=== PATIENT | male | born 1950 | race Caucasian/White ===

== ENCOUNTER → 2018-05-25 | Outpatient (CLI) | payer MEDICARE ==
--- NOTE | 2018-05-25 11:43 | MR ---
EXAMINATION TYPE: MR lumbar spine wo con DATE OF EXAM: 05/25/2018 COMPARISON: NONE HISTORY: Radiculopathy, lumbar and spondylosis per order. Pain into right buttocks, sciatic nerve pro blem for 4 months per patient. TECHNIQUE: Multiplanar, multisequence imaging of the lumbar spine is performed without IV contrast. FINDINGS: Sagittal images of the lumbar spine show vertebral body heights and alignment to appear sat isfactory. The intervertebral discs demonstrate multilevel disc desiccation and mild to moderate disc space narrowing. There is mild to moderate anterior spurring near thoracolumbar junction. The conus medullaris is normal in position and signal ending mid L1 level. The bone marrow signal intensity is within normal limits. Axial images at the T12-L1 level shows tiny right paracentral disc protrusion minimally effacing ante rior thecal sac and mild facet degenerative changes bilaterally. Bilateral neural foramina are patent . Axial images at the L1-L2 level show mild/moderate broad disc bulge effacing anterior thecal sac on a xial image 22 with mild facet degenerative changes bilaterally. Bilateral neural foramina are patent. Axial images at L2-L3 level show mild facet degenerative changes bilaterally. There is mild to modera te broad disc bulge with left paracentral disc protrusion component effacing anterior thecal sac, the re is mild left greater than right bilateral inferior neural foraminal narrowing. Axial images at L3-L4 level show moderate broad disc bulge, there is mild to moderate bilateral anter ior inferior neural foraminal narrowing. There is mild facet degenerative changes bilaterally. More i mportantly there is oval well-defined lesion sagittal image 6 measuring roughly 2.5 cm craniocaudal d imension by 9 mm in AP diameter by 9 mm transverse diameter that is fairly isointense to desiccated d iscs on T1-weighted images but slightly hyperintense on T2-weighted images and has similar isointensi ty on T1 and slight hyperintensity on T2-weighted images to paraspinal muscles with a low T1-T2 thin rim. This is causing significant spinal canal effacement. Axial images at the L4-L5 level show mild/moderate facet degenerative changes bilaterally. There is m ild to moderate broad disc bulge with central disc protrusion component effacing anterior thecal sac and causing moderate left greater than right bilateral neural foraminal narrowing, some encroachment left L4 nerve is felt present sagittal images 1 and 2 and axial image 8. Axial images at the L5-S1 level show mild/moderate facet degenerative changes bilaterally. There is c entral disc protrusion mildly effacing anterior thecal sac. Bilateral neural foramina are patent. No suspicious incidental retroperitoneal findings are present. IMPRESSION: Multilevel degenerative changes as detailed above, more importantly is anterior spinal ca nal lesion centered L3-L4 level presumed not related to disc causing significant spinal canal effacem ent or stenosis. Lesion is extra medullary and favored extradural in location based on sagittal image 6 where appears to be posteriorly displacing the superior epidural fat. Advise neurosurgical referra l. Etiology uncertain but favored benign.
== END | disposition home or self-care (01) ==
LOC: RADMRIMAIN 07:11
PROVIDERS: ATTEND Physical Medicine & Rehabilitation
DX: M47.26 Other spondylosis with radiculopathy, lumbar region (principal); M47.27 Other spondylosis with radiculopathy, lumbosacral region; E11.9 Type 2 diabetes mellitus without complications
CPT/HCPCS: 72148